=== PATIENT | female | born 2000 | race African-American/Black ===

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

== ENCOUNTER 2022-02-08 17:28 | Emergency (ER) | payer OTHER ==
[2022-02-08] MEDS ORDERED: Dexamethasone 10 MG/ML VIAL ONE (18:07)
== END 2022-02-08 18:13 | disposition home or self-care (01) ==
LOC: ERS 17:28
DX: R21 Rash and other nonspecific skin eruption (principal)
CPT/HCPCS: 99282; J1100